=== PATIENT | female | born 1995 | race Caucasian/White ===

== ENCOUNTER 2019-10-30 16:38 | Outpatient (RCR) | payer OTHER, SELFPAY ==
[2019-10-28 17:22] LABS: Beta HCG Quantitative 79.69 mIU/ML
[2019-10-31 21:57] LABS: Progesterone 36.7 ng/mL (***)
== END 2020-01-26 23:59 | disposition home or self-care (01) ==
LOC: ANHLAB 16:38
PROVIDERS: PCP Family Medicine Adolescent Medicine; Visit Provider Obstetrics & Gynecology Gynecology
DX: O26.21 Pregnancy care for patient with recurrent pregnancy loss, first trimester (principal); Z3A.00 Weeks of gestation of pregnancy not specified
CPT/HCPCS: 36415; 84144; 84702

== ENCOUNTER 2019-12-24 14:25 | Outpatient (NON) | payer OTHER, SELFPAY | END 2019-12-24 14:26 | LOC: ANHLAB 14:26 | PROVIDERS: PCP Family Medicine Adolescent Medicine; Visit Provider Nurse Practitioner | DX: O03.9 Complete or unspecified spontaneous abortion without complication (principal); Z3A.00 Weeks of gestation of pregnancy not specified | CPT/HCPCS: 88305 ==